=== PATIENT | male | born 1945 | race Caucasian/White ===

== ENCOUNTER 2019-07-27 15:00 | Emergency (ER) | payer MEDICARE ==
--- NOTE | 2019-07-27 15:37 | EDM.PDOC ---
ED HPI GENERAL MEDICAL PROBLEM - General Chief Complaint: General Stated Complaint: INURY ON ICE Time Seen by Provider: 07/27/19 15:20 Source of Information: Reports: Patient, Family History Limitations: Reports: No Limitations - History of Present Illness INITIAL COMMENTS - FREE TEXT/NARRATIVE: This patient presents to the ED for evaluation following a fall. He was using an ice auger and it caused him to fall into the wall of his fish house. He was able to bear weight and went home and took some Vicodin and Flexeril that he had at home. He states the pain is in the back of his right thigh where he contacted the wall. He denies other injuries or concerns. Onset: Today, Sudden Duration: Getting Worse Location: Reports: Lower Extremity, Right Quality: Reports: Ache Severity: Moderate Improves with: Reports: Medication Context: Reports: Trauma Associated Symptoms: Reports: No Other Symptoms Right Leg Pain Score (Numeric/FACES): 7 - Related Data Allergies Allergy/AdvReac Type Severity Reaction Status Date / Time Penicillins Allergy Hives Verified 07/27/19 15:17 Past Medical History - Past Health History Medical/Surgical History: Denies Medical/Surgical History Social & Family History - Family History Family Medical History: Noncontributory - Tobacco Use Smoking Status *Q: Current Every Day Smoker Years of Tobacco use: 40 Packs/Tins Daily: 2 - Caffeine Use Caffeine Use: Reports: Coffee - Recreational Drug Use Recreational Drug Use: No ED ROS GENERAL - Review of Systems Review Of Systems: See Below Constitutional: Reports: No Symptoms HEENT: Reports: No Symptoms Respiratory: Reports: No Symptoms Endocrine: Reports: No Symptoms GI/Abdominal: Reports: No Symptoms Musculoskeletal: Reports: Leg Pain (tenderness with palpation of right posterior thigh) Skin: Reports: No Symptoms Neurological: Reports: No Symptoms ED EXAM, GENERAL - Physical Exam Exam: See Below Exam Limited By: No Limitations General Appearance: Alert, WD/WN, No Apparent Distress Eye Exam: Bilateral Eye: PERRL Ears: Normal External Exam Nose: Normal Inspection Throat/Mouth: Normal Inspection Head: Atraumatic, Normocephalic Neck: Normal Inspection, Full Range of Motion Respiratory/Chest: No Respiratory Distress Extremities: Other (Tenderness with palpation of right posterior thigh, distal CMS intact. Mild swelling noted, no deformity or discoloration noted) Skin Exam: Warm, Dry Front/Back Body Diagram: 1 - tenderness with palpation, mild swelling; no discoloration or deformity Course - Vital Signs Last Recorded V/S: Last Vital Signs Temp 36.7 C 07/27/19 15:08 Pulse 95 07/27/19 15:08 Resp 18 07/27/19 15:08 BP 138/86 07/27/19 15:08 Pulse Ox 98 07/27/19 15:08 - Orders/Labs/Meds Orders: Active Orders 24 hr Category Date Time Status Femur Min 2V Lt [CR] Stat Exams 07/27/19 15:20 Taken - Radiology Interpretation Free Text/Narrative:: This patient presents for evaluation after a fall with pain to his posterior right thigh. A broad differential was considered including sprain, strain, fracture, tendon rupture, nerve impingement/compromise, referred pain. X-ray was negative for acute findings and signs and symptoms are consistent with a contusion. Supportive outpatient management is indicated. Rest, ice, and elevation treatment was discussed with the patient. Close follow-up with patient 's primary care physician per discharge precautions. Contusion discharge instructions given for home. Departure - Departure Time of Disposition: 16:00 Disposition: Home, Self-Care 01 Clinical Impression: Contusion - Discharge Information Instructions: Contusion, [id number], RICE for Routine Care of Injuries Referrals: PCP,None [Primary Care Provider] - Forms: ED Department Discharge Additional Instructions: Discharge home. Ibuprofen 600mg every 6-8 hours by mouth. Ice for the next 24 hours and rest the right leg for the next day. Follow up with your primary provider as needed. Call or return to the ER if you have any questions or concerns. Sepsis Event Note - Evaluation Sepsis Screening Result: No Definite Risk - Focused Exam Date Exam was Performed: 07/28/19 Time Exam was Performed: 11:07 - My Orders Last 24 Hours: My Active Orders 07/27/19 15:20 Femur Min 2V Lt [CR] Stat - Assessment/Plan Last 24 Hours: My Active Orders 07/27/19 15:20 Femur Min 2V Lt [CR] Stat
--- NOTE | 2019-07-29 08:01 | CR ---
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 No acute fracture or dislocation. No focal lytic or blastic bone lesions. There are vascular calcifications in the soft tissues. [id number] [facility]
== END 2019-07-27 15:55 | disposition home or self-care (01) ==
LOC: LB.ED 15:00
DX: S70.11XA Contusion of right thigh, initial encounter (principal); F17.210 Nicotine dependence, cigarettes, uncomplicated; Z88.0 Allergy status to penicillin; W18.30XA Fall on same level, unspecified, initial encounter
CPT/HCPCS: 73552-LT; 73552-RT; 99282; 99283-25

== ENCOUNTER 2023-03-29 09:10 | Emergency (ER) | payer MEDICARE ==
[2023-03-29] MEDS ORDERED: Sodium Chloride 0.9% 10 ML Syringe FLUSH PRN (09:50)
[2023-03-29] MEDS ORDERED: Aspirin 81 MG Tab.Chew PO ONE (09:53)
[2023-03-29] MEDS ORDERED: Nitroglycerin 0.4 MG Tab.SL SL ONE (09:53)
[2023-03-29] MEDS ORDERED: Heparin Sodium 5,000 Units/ML Vial IVPUSH ONE (09:54)
[2023-03-29] MEDS ORDERED: atorvaSTATin 80 MG Tab PO ONE (09:55)
[2023-03-29] MEDS ORDERED: Metoprolol Tartrate 25 MG Tab PO ONE (09:55)
[2023-03-29] MEDS ORDERED: Heparin Sodium/D5W 25,000 UNITS/500 ML BAG IV SCH (10:00)
[2023-03-29 10:18] LABS: HEMATOCRIT 43.6 % (40.0-54.0); HEMOGLOBIN 14.5 g/dL (13.0-18.0); MEAN CORPUSCULAR HEMOGLOBIN 33.9 pg (27.0-32.0); MEAN CORPUSCULAR HGB CONC 33.3 g/dL (31.0-35.0); MEAN PLATELET VOLUME 10.2 fL (6.0-10.0); RED BLOOD CELL COUNT 4.28 M/uL (4.50-6.50); RED CELL DISTRIBUTION WIDTH 14.2 % (11.0-16.0); WHITE BLOOD CELL COUNT,WBC 9.6 K/uL (4.0-11.0)
[2023-03-29 10:37] LABS: ANION GAP 11.9 mmol/L (5.0-15.0); BUN/CREATININE RATIO 29.5 (6-25); CALCIUM 8.8 mg/dL (8.5-10.1); CARBON DIOXIDE,CO2 29.1 mmol/L (21.0-32.0); CREATININE 0.78 mg/dL (0.70-1.30); EST CRCL DRUG DOSING (CG) 84.49 mL/min; MAGNESIUM 1.6 mg/dL (1.8-2.4); PHOSPHORUS 2.8 mg/dL (2.5-4.9)
[2023-03-29 10:38] LABS: TROPONIN I HIGH SENSITIVITY 410.7 pg/ml (<=60.4)
[2023-03-29] MEDS ORDERED: Morphine 4 MG/ML VIAL IVPUSH ONE (11:41)
== END 2023-03-29 11:34 ==
LOC: LB.ED 09:10
DX: I21.3 ST elevation (STEMI) myocardial infarction of unspecified site (principal); I25.9 Chronic ischemic heart disease, unspecified; Z88.0 Allergy status to penicillin; Z79.82 Long term (current) use of aspirin; Z79.899 Other long term (current) drug therapy
CPT/HCPCS: 36415; 71045; 80048; 83735; 84100; 84484; 85027; 85379; 93005; 96365; 96376; 99285; A9270; J1644

== ENCOUNTER 2023-11-03 11:45 | Emergency (ER) | payer MEDICARE | END 2023-11-03 13:20 | disposition home or self-care (01) | LOC: LB.ED 11:45 | DX: S90.31XA Contusion of right foot, initial encounter (principal); S50.11XA Contusion of right forearm, initial encounter; S40.022A Contusion of left upper arm, initial encounter; E78.00 Pure hypercholesterolemia, unspecified; I10 Essential (primary) hypertension; E11.9 Type 2 diabetes mellitus without complications; Z88.0 Allergy status to penicillin; Z79.899 Other long term (current) drug therapy; Z79.82 Long term (current) use of aspirin; Z79.84 Long term (current) use of oral hypoglycemic drugs; V03.00XA Pedestrian on foot injured in collision with car, pick-up truck or van in nontraffic accident, initial encounter | CPT/HCPCS: 73630-RT; 99283 ==